=== PATIENT | male | born 1965 | race Caucasian/White ===

== ENCOUNTER 2017-01-08 06:54 | Day surgery (SDC) ==
[2017-01-08] MEDS ORDERED: LIDOCAINE 1% 20 ML MDV ID ONE (07:18)
[2017-01-08] MEDS ORDERED: DIPRIVAN 20 ML VIAL IVP ONE (08:00)
[2017-01-08] MEDS ORDERED: VERSED ONE (08:00)
[2017-01-08 09:16] VITALS: BP 106/68; TEMP 97
--- NOTE | 2017-01-08 14:43 | OP ---
PROCEDURE: COLONOSCOPY TO THE CECUM WITH SNARE POLYPECTOMY. ENDOSCOPIST: Edgard TANG M.D. INDICATION: SCREENING. INSTRUMENT: FH-[id number]. MEDICATION: PER ANESTHESIA. PROCEDURE: The patient was positioned for colonoscopy. The digital rectal exam was negative. The colonoscope was inserted through the anus and advanced to the cecum. The cecum was identified using the ileocecal valve and the appendiceal orifice as landmarks. The scope was slowly withdrawn through an adequately prepped colon. A small polyp at 30 cm removed using cold snare polypectomy. A small polyp at 20 cm removed using cold snare polypectomy. Retroflex exam was notable for hemorrhoids. No other significant abnormalities were noted. Withdrawal time 11 minutes, 3 seconds. PLAN: 1. Review his pathology with anticipated repeat exam in 5 years. PATRICIA
== END 2017-01-08 09:22 | disposition home or self-care (01) ==
LOC: SURG 06:54
PROVIDERS: ATTEND Internal Medicine Gastroenterology
DX: Z12.11 Encounter for screening for malignant neoplasm of colon (principal); D12.5 Benign neoplasm of sigmoid colon; K63.5 Polyp of colon; K64.9 Unspecified hemorrhoids

== ENCOUNTER 2017-05-24 13:02 | Outpatient (CLI) ==
--- NOTE | 2017-05-24 13:39 | DI ---
EXAM: Of the four views HISTORY: Pain in left knee COMPARISON: None FINDINGS: No fracture or dislocation. Minimal retropatellar osteophyte formation. Medial, lateral, patellofemoral compartment normal in height. No joint effusion. Patellar tendon enthesopathy. IMPERSSION: Minimal patellofemoral osteoarthritis.
== END 2017-05-24 13:03 | disposition home or self-care (01) ==
LOC: RAD 13:02
PROVIDERS: ATTEND Family Medicine
DX: M25.562 Pain in left knee (principal)

== ENCOUNTER 2017-07-17 09:07 | Outpatient (CLI) ==
--- NOTE | 2017-07-17 12:01 | MRI ---
EXAM: MRI left knee without contrast COMPARISON: Left knee radiographs 05/24/2017. HISTORY: Left knee pain. No known injury. TECHNIQUE: Multiplanar noncontrast MR images of the left knee were acquired using a 1.2 Yumiko magnet . FINDINGS: There is intrasubstance degeneration of the medial meniscus with a tear involving the free edge inferior articular surface of the posterior horn and root through the posterior portion of the body with small peripheral undersurface flap extending just into the inferior recess at that level. Mild extrusion of the body related to some loss hoop containment. Intrasubstance degeneration lateral meniscus with mild degenerative fraying of the free edge of the p osterior horn. Thinning of the anterior cruciate ligament inversion recovery hyperintense signal involving the fiber s of intercondylar notch related to mucoid degeneration versus sequela of a sprain/partial tear with intact ligament fibers identified. The posterior cruciate ligament is intact. Minimal sprain with s carring of the medial collateral ligament proximally. Small bone spur involving the femoral attachmen t ligament. Scarring related to a chronic sprain of the lateral collateral ligament its femoral attac hment. Moderate distal quadriceps and moderate proximal/distal patellar tendinosis. No abnormal sub luxation of the patella. Subcutaneous edema anteriorly. There is heterogeneous signal along the cartilage of the patella with thinning and deep fissuring of the cartilage along the median ridge and lateral facet. Mild thinning and irregularity of the cartil age along the opposing portion of the trochlear groove. Mild to moderate thinning of the cartilage i n the medial compartment. No evidence of an acute fracture or osteomyelitis. Small joint effusion. Small popliteal cyst measuring 6.3 x 2.5 x 1.4 cm within internal septations. No osteochondral body identified. IMPRESSION: 1. Complex tear of the medial meniscus with flap formation as described. 2. Intrasubstance degeneration of the lateral meniscus with minimal degenerative fraying of the free edge. 3. Mild thinning of the anterior cruciate ligament related to mucoid degeneration versus a sprain/pa rtial tear with intact ligament fibers clearly identified. Minimal sprain with scarring of the media l collateral ligament. Chronic sprain with scarring of the lateral collateral ligament. 4. Medial and patellofemoral compartment osteoarthrosis with most pronounced thinning and fissuring of the cartilage of the patella. 5. Moderate patellar/quadriceps tendinosis without a tendon tear. 6. Small joint effusion. Small popliteal cyst.
== END 2017-07-17 09:08 | disposition home or self-care (01) ==
LOC: RAD 09:07
PROVIDERS: ATTEND Orthopaedic Surgery
DX: M25.562 Pain in left knee (principal)

== ENCOUNTER → 2017-08-08 | Outpatient (RCR) | payer OTHER ==
--- NOTE | 2017-08-08 09:11 | RS.OPPTEV2 ---
Date of Note: 08/06/17 Visit #: 1 Date of Evaluation: 08/06/17 Payer Source: Insurance Surgery Performed?: Yes Procedure Performed: meniscus repair Date of Procedure: 08/02/17 Treatment Diagnosis: complex tear of medial meniscus of L knee History of Condition/Mechanism of Injury:: pt report has had a long standing hx of knee pain, however knee began swelling and with increased pain a couple of months ago. Prior Level of Function.....Patient was independent with: ADL's, Self Care, Work /Vocation, Ambulation/Mobility, Community Integration/Access Functional Limitations: Lifting, Standing, Bending, Squatting, Ambulation, Community Access/Integration Current Subjective/complaints:: pt states he is doing a little better today than the day after surgery. pt reports he is not taking pain meds, just tylenol. pt states he has a long history of back pain for which he takes tylenol arthritis. 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 States he has to be able to run as part of his job. Treatment Side (optional): Left *Precautions: n/a Medical History Medical History: Hypertension, Arthritis Medical History Comments:: hx of low back pain Surgical History Comments:: L knee arthroscopy Smoking Status: Former smoker Diagnostic Testing/Imaging:: MRI of L knee prior to surgery: complex tear of medial meniscus. intrsubstance degeneration of lat meniscus with min degenerative fraying of free edge. mild thinning of the ACL related to mucoid degeneration vs a sprain/partial tear with intact ligament fibers clearly identified. mod patellar/quadriceps tendinosis Hx Home Medications: metoprolol tartrate, lisinopril, lovaza, aspirin, niacin, cyclobenzaprine, tylenol arthritis, one a day multivitamin, Patient's Goals: decrease pain and return to work. Pain Assessment - Pain Description Pain Location: L knee Pain Description: Burning, Sharp, Aching Current Pain Intensity: 3/10 Functional Outcome Measure LE Functional Scale: 27 (66%) - G Codes & Severity Modifier G Codes & Modifier: n/a Source of G Code score: n/a Observation - Observation Inspection: edema L knee 58.5 cm. R knee 44.5cm Posture: Forward Head, Rounded Shoulders Handedness: Right Gait - Gait Pattern General Gait Pattern Observation: Antalgic Gait, Short Stance Time (L) Gait Comments: pt amb without AD with antalgic gait General Range of Motion: BUE WFL's. RLE WFL's. LLE hip WFL's, ankle WFL's Muscle Strength: BUE 5/5. RLE 5/5. LLE hip flex 4+/5, ankle DF/PF 4+/5 Knee ROM: Right WFL's Knee Muscle Strength: Right WFL's - Left Knee ROM Left Knee Extension: -9 Left Knee Flexion: 110 Knee ROM Limitations: Soft Tissue Tightness, Muscle Weakness, Pain - Left Knee Strength Left Knee Extension: 3- Fair- Left Knee Flexion: 3 Fair Palpation Palpation Findings: Tenderness (L posterior knee, medial knee) Sensation - Sensation Right Upper Extremity: Intact/Normal Left Upper Extremity: Intact/Normal Comments: occasional numbness and tingling BLE Balance - Sitting Balance Static Sitting Balance: Normal Dynamic Sitting Balance: Normal - Standing Balance Static Standing Balance: Good Dynamic Standing Balance: Good - Heat/Cryotherapy Treatment: Cryotherapy Comments:: L knee Interventions - Exercise/Activities/Manual Therapy Exercises/Activities: pt performed QS, SLR, SLR/VMO, SAQ, HS, hip abd/add x 5 to 10 reps Manual Therapy: n/a HOME EXERCISE PROGRAM: pt given written HEP including: QS, SAQ, SLR, SLR/VMO, hip abd/add, HS - Charges Timed Code Treatment Minutes: 45 Total Treatment Time: 58 Procedures billed for this date of service:: eval low, cp EVALUATION COMPLEXITY LEVEL EVALUATION COMPLEXITY LEVEL: HISTORY: Low (meniscus tear, LBP), EXAM OF BODY SYSTEMS: Medium (musculoskeltal, neuro, cardio), CLINICAL PRESENTATION: Low ( stable), CLINICAL DECISION MAKING: Low Assessment Assessment: pt presents with decreased ROM, strength and edema, pain L knee s/p meniscus repair. 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 Goal #1: pt report pain <2/10 with activity Goal to be met by: 09/03/17 Goal #2: Improve L knee ext 0 Goal to be met by: 09/03/17 Goal #3: pt return to community amb with less pain and improved sequencing Goal to be met by: 09/03/17 Goal #4: Improve L quad strength 4+/5, hamstring 5/5, independent HEP Goal to be met by: 09/03/17 Plan - Treatment to be Provided Procedures: Therapeutic Exercises, Gait Training, Massage, Patient Education Modalities: Electrical Stimulation, Cryotherapy, Hot Packs - Treatment Plan Frequency: 3 X week Duration: 4 weeks ORDER # VISITS AND/OR THROUGH DATE: 09/07/17 - Treatment Code (1) Joint effusion of knee Qualifiers: Laterality: left Qualified Code(s): M25.462 - Effusion, left knee (2) Left knee pain Code(s): M25.562 - PAIN IN LEFT KNEE Qualifiers: Chronicity: acute Qualified Code(s): M25.562 - Pain in left knee (3) Complex tear of medial meniscus of left knee Code(s): S83.232A - COMPLEX TEAR OF MEDIAL MENSC, CURRENT INJURY, L KNEE, INIT Qualifiers: Tear current or old: current Encounter type: initial encounter Qualified Code(s): S83.232A - Complex tear of medial meniscus, current injury, left knee, initial encounter (4) Other specified postprocedural states Code(s): Z98.89 - OTHER SPECIFIED POSTPROCEDURAL STATES * DO NOT USE * Comments: meniscus repair 08/02/17 (5) Muscle weakness Code(s): M62.81 - MUSCLE WEAKNESS (GENERALIZED)
--- NOTE | 2017-08-08 12:14 | RS.OPPTDN ---
Subjective Date of Note: 08/08/17 Visit #: 2 Date of Evaluation: 08/06/17 Payer Source: Insurance Treatment Diagnosis: complex tear of medial meniscus of L knee Current Subjective/complaints:: Patient reports he is working on HEP. States left knee is tight but swelling is improving. Denies pain in static standing, but is carefull with turns with ambulation. *Precautions: n/a Pain Assessment - Pain Description Pain Location: left knee Pain Description: Aching Current Pain Intensity: mod with some activity, no pain at rest - Treatment Modality: Electrical Stim Unattended Parameters/Method Applied: [id number] HVGC to 250-265p.v. with 4 large pads cross current to the left knee joint with CP following EX. Patient Position: Supine - Heat/Cryotherapy Treatment: Cryotherapy ([id number] with Estim ) Interventions - Exercise/Activities/Manual Therapy Exercises/Activities: Assisted stretching of hamtrings, heel cords, and knee flex/ext. QS and ham sets, multiple reps. SLR, SLR/VMO, SAQ, and hip abd/add, 2s /10reps each. Assisted heel slides. Red TB ankle df 2s/10reps. Yellow TB ham curl and hip add with full knee extension, 2s/10reps each. In sitting, yellow TB ham curl, 2s/10reps. Isometric knee flex and ext in neutral. Patient education of dx, joint mechanics, safety, and home care. Advised to increase ice with left LE elevated above heart. Total minutes of Exercise: 30mins Manual Therapy: n/a HOME EXERCISE PROGRAM: pt given written HEP including: QS, SAQ, SLR, SLR/VMO, hip abd/add, HS - Objective Findings Observations,measurements,etc.: Good AAROM - Charges Timed Code Treatment Minutes: 30mins Total Treatment Time: 50mins Procedures billed for this date of service:: EX2, CP, Estim unattended Assessment: Will need to reduce joint swelling before progressing resistve exercise. Patient Education: Education of diagnosis, Body/Joint mechanics, Home Exercise Program, Home Safety, Activity Modification Patient demonstrates compliance with HEP?: Yes Short Term Goals Goal #1: pt report pain <4/10 L knee with activity Goal to be met by: 08/20/17 Progress towards Goal:: Progressing Goal #2: Improve ROM L knee flex 115 ext -4 Goal to be met by: 08/20/17 Progress towards Goal:: Progressing Goal #3: pt amb in dept with improved heel strike/toe off, with less pain Goal to be met by: 08/20/17 [facility] Goals Goal #1: pt report pain <2/10 with activity Goal to be met by: 09/03/17 Goal #2: Improve L knee ext 0 Goal to be met by: 09/03/17 Progress towards goal: Progressing Goal #3: pt return to community amb with less pain and improved sequencing Goal to be met by: 09/03/17 Goal #4: Improve L quad strength 4+/5, hamstring 5/5, independent HEP Goal to be met by: 09/03/17 Plan PLAN OF CARE EXPIRES ON:: 09/03/17 ORDER # VISITS AND/OR THROUGH DATE: 09/03/17 PLAN: Continue modalities and progress exercise to increase patients functional activity level.
== END | disposition short-term general hospital (02) ==
PROVIDERS: ATTEND Orthopaedic Surgery
DX: S83.232A Complex tear of medial meniscus, current injury, left knee, initial encounter (principal)

== ENCOUNTER 2017-08-31 10:00 | Outpatient (RCR) ==
--- NOTE | 2017-08-10 11:47 | RS.OPPTDN ---
Subjective Date of Note: 08/10/17 Visit #: 3 Date of Evaluation: 08/06/17 Payer Source: Insurance Treatment Diagnosis: complex tear of medial meniscus of L knee Current Subjective/complaints:: Patient reports mobility with left knee flexion. States he has a stationary bike at home and will work on it over the weekend. *Precautions: n/a Pain Assessment - Pain Description Pain Location: Left knee Current Pain Intensity: mild to mod - Treatment Modality: Electrical Stim Unattended Parameters/Method Applied: [id number] HVGC to 160p.v. with 4 large pads, cross current, with CP to the left knee joint following EX. Patient Position: Supine - Heat/Cryotherapy Treatment: Cryotherapy ([id number] with Estim ) Interventions - Exercise/Activities/Manual Therapy Exercises/Activities: Assisted stretching of hamtrings, heel cords, and knee flex/ext. QS and ham sets, multiple reps. Added 1 1/2# to SLR and SLR/VMO, 3s/ 10reps each. Added 5# to SAQ, 2s/10reps. Assisted heel slides. Red TB ankle df, ham curl, and hip add and hip abd with full knee extension, all 2s/10reps each. In sitting, red TB ham curl and LAQ with 5#, 3s/10reps. Began stationary bike 7mins(not in direct time). Patient education of dx, joint mechanics, safety, and home care. Advised patient to limit stationary bike at home to 10mins or less and continue ice to reduce swelling. Total minutes of Exercise: 30mins /37mins Manual Therapy: n/a HOME EXERCISE PROGRAM: pt given written HEP including: QS, SAQ, SLR, SLR/VMO, hip abd/add, HS - Charges Timed Code Treatment Minutes: 30mins Total Treatment Time: 57mins Procedures billed for this date of service:: EX2, CP, Estim unattended Assessment: Patient progressing well with ROM and strengthening. Patient Education: Body/Joint mechanics, Home Exercise Program, Activity Modification Patient demonstrates compliance with HEP?: Yes Short Term Goals Goal #1: pt report pain <4/10 L knee with activity Goal to be met by: 08/20/17 Progress towards Goal:: Partially Met Goal #2: Improve ROM L knee flex 115 ext -4 Goal to be met by: 08/20/17 Progress towards Goal:: Met Goal #3: pt amb in dept with improved heel strike/toe off, with less pain Goal to be met by: 08/20/17 Progress towards Goal:: Progressing Snf Goals Goal #1: pt report pain <2/10 with activity Goal to be met by: 09/03/17 Progress towards goal: Progressing Goal #2: Improve L knee ext 0 Goal to be met by: 09/03/17 Progress towards goal: Progressing Goal #3: pt return to community amb with less pain and improved sequencing Goal to be met by: 09/03/17 Goal #4: Improve L quad strength 4+/5, hamstring 5/5, independent HEP Goal to be met by: 09/03/17 Plan PLAN OF CARE EXPIRES ON:: 09/03/17 ORDER # VISITS AND/OR THROUGH DATE: 09/03/17 PLAN: Progress exercise to increase strength and ROM of the left knee and LE. Remove sutures on Sunday as patient will be 13 days post-op.
--- NOTE | 2017-08-13 11:50 | RS.OPPTDN ---
Subjective Date of Note: 08/13/17 Visit #: 4 Date of Evaluation: 08/06/17 Payer Source: Insurance Treatment Diagnosis: complex tear of medial meniscus of L knee Current Subjective/complaints:: Patient reports left knee pain and joint tightness is improving. Reports increased tightness at the end of the day. *Precautions: n/a Pain Assessment - Pain Description Pain Location: Left knee Pain Description: Tightness Current Pain Intensity: mild Interventions - Exercise/Activities/Manual Therapy Exercises/Activities: Assisted stretching of hamtrings, heel cords, and knee flex/ext. QS and ham sets, multiple reps. Increased to 3# SLR and SLR/VMO, 3s/ 10reps each. SAQ 5#, 3s/10reps. Assisted heel slides. ISometric ankle inversion and hip IR with ball between feet. Increased to green TB ankle df, ham curl, and hip add and hip abd with full knee extension, all 3s/10reps each. In sitting , green TB ham curl and LAQ with 4#, 3s/10reps. 10mins on stationary bike (not included in direct time). Patient given green theraband for standing hip flex, ext, add, and abd. Ended with additional hamstring stretch and passive knee flexion. Patient education of dx, joint mechanics, safety, and home care. Total minutes of Exercise: 40mins/50mins Manual Therapy: n/a HOME EXERCISE PROGRAM: pt given written HEP including: QS, SAQ, SLR, SLR/VMO, hip abd/add, HS - Objective Findings Observations,measurements,etc.: Left knee flexion to 124 degrees. - Charges Timed Code Treatment Minutes: 40mins Total Treatment Time: 50mins Procedures billed for this date of service:: EX3 Assessment: Patient progressing well with ROM and strengthening of the left knee joint. Patient Education: Body/Joint mechanics, Home Exercise Program Patient demonstrates compliance with HEP?: Yes Short Term Goals Goal #1: pt report pain <4/10 L knee with activity Goal to be met by: 08/20/17 Progress towards Goal:: Partially Met Goal #2: Improve ROM L knee flex 115 ext -4 Goal to be met by: 08/20/17 Progress towards Goal:: Met Goal #3: pt amb in dept with improved heel strike/toe off, with less pain Goal to be met by: 08/20/17 Progress towards Goal:: Progressing Group Home Goals Goal #1: pt report pain <2/10 with activity Goal to be met by: 09/03/17 Progress towards goal: Progressing Goal #2: Improve L knee ext 0 Goal to be met by: 09/03/17 Progress towards goal: Partially Met Goal #3: pt return to community amb with less pain and improved sequencing Goal to be met by: 09/03/17 Progress towards goal: Progressing Goal #4: Improve L quad strength 4+/5, hamstring 5/5, independent HEP Goal to be met by: 09/03/17 Progress towards goal: Progressing Plan PLAN OF CARE EXPIRES ON:: 09/03/17 ORDER # VISITS AND/OR THROUGH DATE: 09/03/17 PLAN: Progress strength and ROM to return patient to PLOF.
--- NOTE | 2017-08-15 16:31 | RS.OPPTDN ---
Subjective Date of Note: 08/15/17 Visit #: 5 Date of Evaluation: 08/06/17 Payer Source: Insurance Treatment Diagnosis: complex tear of medial meniscus of L knee Current Subjective/complaints:: Patient reports increased pain last evening which may be due to increase in resistive exercise or change in weather. Pain is mainly at the popliteal surface. *Precautions: n/a Pain Assessment - Pain Description Pain Location: Left knee Pain Description: Tightness, Aching Current Pain Intensity: mod - Treatment Modality: Ultrasound Parameters/Method Applied: [id number] at 1.5w/cm2 to the left knee joint with focus on the popliteal surface prior to EX. Patient Position: Supine Interventions - Exercise/Activities/Manual Therapy Exercises/Activities: Assisted stretching of hamtrings, heel cords, and knee flex/ext. QS and ham sets, multiple reps. 3# SLR and SLR/VMO, 3s/10reps each. Witheld SAQ. Assisted heel slides. Isometric ankle inversion and hip IR with ball between feet. Red TB ankle df, ham curl, and hip add and hip abd with full knee extension, all 3s/10reps each. In sitting, green TB ham curl and manually resisted isometrics. Began leg press 75#, 2s/10reps. 10mins on stationary bike (not included in direct time). Ended with additional hamstring stretching. Total minutes of Exercise: 35mins Manual Therapy: n/a HOME EXERCISE PROGRAM: pt given written HEP including: QS, SAQ, SLR, SLR/VMO, hip abd/add, HS - Objective Findings Observations,measurements,etc.: Left knee active flexion 126 degrees, passive flexion 130 degrees and active extension to neutral. 4+/5 MMT with quads and 5/ 5 with hamstrings. - Charges Timed Code Treatment Minutes: 45mins Total Treatment Time: 45mins Procedures billed for this date of service:: US, EX2 Assessment: Patient with flair-up of knee pain today, but patient reporting improvement in flexibility following treatment. 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 Goal #1: pt report pain <2/10 with activity Goal to be met by: 09/03/17 Progress towards goal: Progressing Goal #2: Improve L knee ext 0 Goal to be met by: 09/03/17 Progress towards goal: Met Goal #3: pt return to community amb with less pain and improved sequencing Goal to be met by: 09/03/17 Progress towards goal: Progressing Goal #4: Improve L quad strength 4+/5, hamstring 5/5, independent HEP Goal to be met by: 09/03/17 Progress towards goal: Partially Met Plan PLAN OF CARE EXPIRES ON:: 09/03/17 ORDER # VISITS AND/OR THROUGH DATE: 09/03/17 PLAN: Continue progression of strengthening exercise. Will progress toward dynamic strengthening exercise next week, progressing toward return to work activities.
--- NOTE | 2017-08-17 11:37 | RS.OPPTDN ---
Subjective Date of Note: 08/17/17 Visit #: 6 Date of Evaluation: 08/06/17 Payer Source: Insurance Treatment Diagnosis: complex tear of medial meniscus of L knee Current Subjective/complaints:: Patient reports flair-up of left knee pain is much better today. States it may have been due to weather. States US seemed to reduce posterior joint pain and would like to do again today. Reports he saw PA yesterday, sutures removed and was told he is progressing well. *Precautions: n/a Pain Assessment - Pain Description Pain Location: Left knee, primarily the posterior joint/popliteal surface Current Pain Intensity: mild - Treatment Modality: Ultrasound Parameters/Method Applied: [id number] at 1.5w/cm2 to the left knee with focus on popliteal surface. Patient Position: Supine Interventions - Exercise/Activities/Manual Therapy Exercises/Activities: Began with 5mins on the bike(not in direct time). Assisted stretching of hamtrings, heel cords, and knee flex/ext. QS and ham sets , multiple reps. Increased to 4# SLR and SLR/VMO, 3s/10reps each. Resumed SAQ with 7#, 3s/10reps. Assisted heel slides. Isometric ankle inversion and hip IR with ball between feet. Increased to blue TB ankle df and ham curl, and hip add and hip abd with full knee extension, all 3s/10reps each. In sitting, blue TB ham curl and manually resisted isometrics. Leg press 75#, multiple reps. Started ankle/df press on leg press with 120#, 2s/10reps. Total minutes of Exercise: 35mins Manual Therapy: n/a HOME EXERCISE PROGRAM: pt given written HEP including: QS, SAQ, SLR, SLR/VMO, hip abd/add, HS - Objective Findings Observations,measurements,etc.: Valentino medina full ROM of the left knee - Charges Timed Code Treatment Minutes: 47mins Total Treatment Time: 52mins Procedures billed for this date of service:: US, EX2 Assessment: Patient progressing well with strengthening. Patient reports good response to US. Should tolerate progression of strengthening activity next week. Patient Education: Home Exercise Program Patient demonstrates compliance with HEP?: Yes Short Term Goals Goal #1: pt report pain <4/10 L knee with activity Goal to be met by: 08/20/17 Progress towards Goal:: Partially Met Goal #2: Improve ROM L knee flex 115 ext -4 Goal to be met by: 08/20/17 Progress towards Goal:: Met Goal #3: pt amb in dept with improved heel strike/toe off, with less pain Goal to be met by: 08/20/17 Progress towards Goal:: Met (Good gait pattern with mild discomfort.) Retirement Goals Goal #1: pt report pain <2/10 with activity Goal to be met by: 09/03/17 Progress towards goal: Progressing Goal #2: Improve L knee ext 0 Goal to be met by: 09/03/17 Progress towards goal: Met Goal #3: pt return to community amb with less pain and improved sequencing Goal to be met by: 09/03/17 Progress towards goal: Partially Met Goal #4: Improve L quad strength 4+/5, hamstring 5/5, independent HEP Goal to be met by: 09/03/17 Progress towards goal: Met Plan PLAN OF CARE EXPIRES ON:: 09/03/17 ORDER # VISITS AND/OR THROUGH DATE: 09/03/17 PLAN: Progress strengtheing including elliptical to prepare for return to work activities.
--- NOTE | 2017-08-20 13:20 | RS.OPPTDN ---
Subjective Date of Note: 08/20/17 Visit #: 7 Date of Evaluation: 08/06/17 Payer Source: Insurance Treatment Diagnosis: complex tear of medial meniscus of L knee Current Subjective/complaints:: Patient reports improvement in strength and swelling. Reports discomfort at the distal posterior popliteal surface and at the distal lateral knee joint with full flexion. *Precautions: n/a Pain Assessment - Pain Description Pain Location: distal posterior popliteal surface and at the distal lateral knee joint Current Pain Intensity: mild to mod Interventions - Exercise/Activities/Manual Therapy Exercises/Activities: Began with 3mins on the bike(not in direct time). Assisted stretching of hamtrings, heel cords, and knee flex/ext. QS and ham sets , multiple reps. 4# SLR and SLR/VMO, 3s/10reps each. Increased to 9# for SAQ, 3s /10reps. Assisted heel slides. Isometric hip add. Blue TB ankle df and ham curl , and hip add and hip abd with full knee extension, all 3s/10reps each. In sitting, blue TB ham curl and manually resisted isometrics. Leg press 105# and ankle/df press on leg press, each 3s/10reps. Wall slides with large therapy ball. Mini-squats with ball between knees. Ended with 7mins on stationary bike( not in direct time). Total minutes of Exercise: 38mins/48mins Manual Therapy: n/a HOME EXERCISE PROGRAM: pt given written HEP including: QS, SAQ, SLR, SLR/VMO, hip abd/add, HS, mini-sqat with ball between knees, wall slides - Charges Timed Code Treatment Minutes: 38mins Total Treatment Time: 50mins Procedures billed for this date of service:: EX3 Assessment: Patient progressing with stretching exercise. 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: pt report pain <2/10 with activity Goal to be met by: 09/03/17 Progress towards goal: Progressing Goal #2: Improve L knee ext 0 Goal to be met by: 09/03/17 Progress towards goal: Met Goal #3: pt return to community amb with less pain and improved sequencing Goal to be met by: 09/03/17 Progress towards goal: Met Goal #4: Improve L quad strength 4+/5, hamstring 5/5, independent HEP Goal to be met by: 09/03/17 Progress towards goal: Met Plan PLAN OF CARE EXPIRES ON:: 09/03/17 ORDER # VISITS AND/OR THROUGH DATE: 09/03/17 PLAN: Progress with exercise to increase patients functional activity level.
--- NOTE | 2017-08-22 13:44 | RS.OPPTDN ---
Subjective Date of Note: 08/22/17 Visit #: 8 Date of Evaluation: 08/06/17 Payer Source: Insurance Treatment Diagnosis: complex tear of medial meniscus of L knee Current Subjective/complaints:: Patient reports continued progress. States he continues to have soreness in the distal posterior left knee. States he is working on HEP and is progressing with modified squats. *Precautions: n/a Pain Assessment - Pain Description Pain Location: Left knee Current Pain Intensity: mild Other Comments regarding Pain:: Discomfort with squatting, which is required as part of job duties. Interventions - Exercise/Activities/Manual Therapy Exercises/Activities: Began with 4mins on the bike(not in direct time). Assisted stretching of hamtrings, heel cords, and knee flex/ext. QS and ham sets , multiple reps. 4# SLR 4s/10reps each. 9# for SAQ, 3s/10reps. Assisted heel slides. Isometric hip add. Blue TB ankle df and ham curl, and hip add and hip abd with full knee extension, all 3s/10reps each. In sitting, blue TB ham curl and manually resisted isometrics. Begins short jumps off of 4" stepper board and jump ups onto 4" stepper board. Lateral step-ups. Leg press increased to 120 # and ankle/df press on leg press, each 3s/10reps. Wall slides with large therapy ball. Patient attempted deep squats and was able to kneel with partial WB on the left knee. Mini-squats with ball between knees. Ended with 6mins on stationary bike(not in direct time). Total minutes of Exercise: 40mins Manual Therapy: n/a HOME EXERCISE PROGRAM: pt given written HEP including: QS, SAQ, SLR, SLR/VMO, hip abd/add, HS, mini-sqat with ball between knees, wall slides - Charges Timed Code Treatment Minutes: 40mins Total Treatment Time: 50mins Procedures billed for this date of service:: EX3 Assessment: Patient progressing with strengthening exercise and with ability to advance agility work. Progressing with activities he will need to perform for return to work. 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: pt report pain <2/10 with activity Goal to be met by: 09/03/17 Progress towards goal: Progressing Goal #2: Improve L knee ext 0 Goal to be met by: 09/03/17 Progress towards goal: Met Goal #3: pt return to community amb with less pain and improved sequencing Goal to be met by: 09/03/17 Progress towards goal: Met Goal #4: Improve L quad strength 4+/5, hamstring 5/5, independent HEP Goal to be met by: 09/03/17 Progress towards goal: Met Plan PLAN OF CARE EXPIRES ON:: 09/03/17 ORDER # VISITS AND/OR THROUGH DATE: 09/03/17 PLAN: Progress strengthening and mobility with functional activities to prepare for return to work.
--- NOTE | 2017-08-24 11:47 | RS.OPPTDN ---
Subjective Date of Note: 08/24/17 Visit #: 9 Date of Evaluation: 08/06/17 Payer Source: Insurance Treatment Diagnosis: complex tear of medial meniscus of L knee Current Subjective/complaints:: Patient reports continued improvement in left knee strength. States he was on his feet more yesterday and did notice some swelling left knee joint. Reports he is working on HEP and modified squats are improving. He will return to his physician next week and expects to return to work, modified duty. *Precautions: n/a Pain Assessment - Pain Description Pain Location: left knee Current Pain Intensity: mild Other Comments regarding Pain:: Left knee pain aggravated with modified squats and elliptical today. He continues to report mild discomfort at he distal poptiteal surface of the knee which he expects to bother his for a while. Interventions - Exercise/Activities/Manual Therapy Exercises/Activities: Began with 5mins on the bike(not in direct time). Assisted stretching of hamtrings, heel cords, and knee flex/ext. QS and ham sets , multiple reps. 4# SLR 4s/10reps each. 7# for SAQ, 3s/10reps. Isometric hip add. Green TB ankle df and ham curl, and hip add and hip abd with full knee extension, all 3s/10reps each. In sitting, green TB ham curl and 7# for LAQ, all 3s/10reps. Leg press increased to 135# and ankle/df press on leg press, each 3s/10reps. Begins elliptical x2mins and step-ups, step-downs at 12" step, multiple reps. Wall slides with large therapy ball. Wall slides with ball between knees. Then mini-squats in standing with ball between knees. Ended with additional 5mins on stationary bike(not in direct time). Discussed knee flexion and hip flex stretch in standing. Also heel cord stretching with belt or in standing. Total minutes of Exercise: 40mins/50mins Manual Therapy: n/a HOME EXERCISE PROGRAM: pt given written HEP including: QS, SAQ, SLR, SLR/VMO, hip abd/add, HS, mini-sqat with ball between knees, wall slides. Hip flexor stretch, heel cord stretch. - Objective Findings Observations,measurements,etc.: Patient with full ROM left knee, some discomfort at end range flexion. - Charges Timed Code Treatment Minutes: 40mins Total Treatment Time: 50mins Procedures billed for this date of service:: EX3 Assessment: Patient progressing well with strengthening of the LE's. 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 #1: pt report pain <2/10 with activity Goal to be met by: 09/03/17 Progress towards goal: Progressing Goal #2: Improve L knee ext 0 Goal to be met by: 09/03/17 Progress towards goal: Met Goal #3: pt return to community amb with less pain and improved sequencing Goal to be met by: 09/03/17 Progress towards goal: Met Goal #4: Improve L quad strength 4+/5, hamstring 5/5, independent HEP Goal to be met by: 09/03/17 Progress towards goal: Met Plan PLAN OF CARE EXPIRES ON:: 09/03/17 ORDER # VISITS AND/OR THROUGH DATE: 09/03/17 PLAN: Continue progression of strengthening in preparation for patient to return to work.
--- NOTE | 2017-08-28 15:01 | RS.OPPTDN ---
Subjective Date of Note: 08/28/17 Visit #: 10 Date of Evaluation: 08/06/17 Payer Source: Insurance Treatment Diagnosis: complex tear of medial meniscus of L knee Current Subjective/complaints:: Patient reports doing well with HEP. States he is able to perform partial squats and has good ROM of the left knee. States he will return to work, partial duty, tomorrow. *Precautions: n/a Pain Assessment - Pain Description Pain Location: Left knee Pain Description: Tightness Current Pain Intensity: mild Interventions - Exercise/Activities/Manual Therapy Exercises/Activities: Began with 6mins on the bike(not in direct time). Assisted stretching of hamtrings, heel cords, and knee flex/ext. QS and ham sets , multiple reps. Increased to 5# SLR 3s/10reps and 3# SLR/VMO 3s/10reps. Increased to 8# for SAQ, 3s/10reps. Isometric hip add. Blue TB ankle df and ham curl, and hip add and hip abd with full knee extension, all 3s/10reps each. In sitting, blue TB ham curl and 5# to left for LAQ with ball between feet, all 3s/10reps. Leg press 135# and ankle/df press on leg press, each 3s/10reps. Bilateral leg jump up and jump offs from 6" stepper board, 2s/10reps each. Step- ups, step-downs at 12" step, multiple reps. Defensive slides with partial knee bend. Wall slides with large therapy ball. Wall slides with ball between knees. Then mini-squats in standing with ball between knees. Unilateral left LE standing on blue and black ovals while performing short knee bends. Total minutes of Exercise: 40mins/46mins Manual Therapy: n/a HOME EXERCISE PROGRAM: pt given written HEP including: QS, SAQ, SLR, SLR/VMO, hip abd/add, HS, mini-sqat with ball between knees, wall slides. Hip flexor stretch, heel cord stretch. - Charges Timed Code Treatment Minutes: 40mins Total Treatment Time: 46mins Procedures billed for this date of service:: EX3 Assessment: Patient progressing well with dynamic strengthening activities. 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
--- NOTE | 2017-08-31 15:09 | RS.OPPTDN ---
Subjective Date of Note: 08/31/17 Visit #: 11 Date of Evaluation: 08/06/17 Payer Source: Insurance Treatment Diagnosis: complex tear of medial meniscus of L knee Current Subjective/complaints:: Patient reports he worked a 12 hour shift at work and was on his feet most of the time. Reports increase in left knee joint pain the last few hours of the shift. He reports some joint swelling today and mild to mot discomfort with weight-bearing/strengthening exercise. Reports he feels this will resolve and he will be able to manage with home care and HEP. *Precautions: n/a Pain Assessment - Pain Description Pain Location: left knee Pain Description: Tightness Current Pain Intensity: mild to mod - Treatment Modality: Ultrasound Parameters/Method Applied: [id number] to the left knee joint with focus on medial joint line. Patient Position: Supine Interventions - Exercise/Activities/Manual Therapy Exercises/Activities: Began with 4mins on the bike(not in direct time). Assisted stretching of hamtrings, heel cords, and knee flex/ext. QS and ham sets , multiple reps. 5# SLR 3s/10reps and 3# SLR/VMO 3s/10reps. 8# for SAQ, 3s/ 10reps. Isometric hip add. Blue TB ankle df and ham curl, and hip add and hip abd with full knee extension, all 3s/10reps each. In sitting, blue TB ham curl and 5# to left for LAQ with ball between feet, all 3s/10reps. Leg press 135# and ankle/df press on leg press, each 3s/10reps. Step-ups, step-downs at 12" step, multiple reps. Partial squats. Total minutes of Exercise: 28mins Manual Therapy: n/a HOME EXERCISE PROGRAM: pt given written HEP including: QS, SAQ, SLR, SLR/VMO, hip abd/add, HS, mini-sqat with ball between knees, wall slides. Hip flexor stretch, heel cord stretch. - Objective Findings Observations,measurements,etc.: Full ROM of the left knee. 5/5 MMT. - Charges Timed Code Treatment Minutes: 38mins Total Treatment Time: 45mins Procedures billed for this date of service:: EX2, US Assessment: Patient has progressed well with strength and ROM of the left LE. He has had some problem with swelling after a full 12 hour shift at work. Patient reports he will not have that job for at least 2 more weeks. He has met 6 of 7 goals. Patient Education: Body/Joint mechanics, Home Exercise Program, Home Safety, Activity Modification, Education of Plan of Care Patient demonstrates compliance with HEP?: Yes Short Term Goals Goal #1: pt report pain <4/10 L knee with activity Goal to be met by: 08/20/17 Progress towards Goal:: Met Goal #2: Improve ROM L knee flex 115 ext -4 Goal to be met by: 08/20/17 Progress towards Goal:: Met Goal #3: pt amb in dept with improved heel strike/toe off, with less pain Goal to be met by: 08/20/17 Progress towards Goal:: Met (Good gait pattern with mild discomfort.) Halfway Goals Goal #1: pt report pain <2/10 with activity Goal to be met by: 09/03/17 Progress towards goal: Partially Met Goal #2: Improve L knee ext 0 Goal to be met by: 09/03/17 Progress towards goal: Met Goal #3: pt return to community amb with less pain and improved sequencing Goal to be met by: 09/03/17 Progress towards goal: Met Goal #4: Improve L quad strength 4+/5, hamstring 5/5, independent HEP Goal to be met by: 09/03/17 Progress towards goal: Met Plan PLAN OF CARE EXPIRES ON:: 08/31/17 ORDER # VISITS AND/OR THROUGH DATE: 09/03/17 PLAN: Discharge with HEP as patient has completed POC.
== END 2017-09-08 ==
PROVIDERS: ATTEND Orthopaedic Surgery
DX: S83.232A Complex tear of medial meniscus, current injury, left knee, initial encounter (principal)